=== PATIENT | female | born 1940 | race Two or more races ===

== ENCOUNTER 2023-01-18 10:45 | Inpatient (IN) | payer OTHER ==
[~2023-01-18] VITALS: Ht 154.9 cm; Wt 73.9 kg
[2023-01-18] MEDS ORDERED: METFORMIN HCL1000 M1 PO (13:04)
[2023-01-18] MEDS ORDERED: ENALAPRIL MALEAT5 MG PO (13:05)
[2023-01-18] MEDS ORDERED: ATORVASTATIN CA40 MG PO (13:05)
== END 2023-01-26 11:54 | disposition home or self-care (01) | DRG 743 ==
LOC: ADM 10:45 → SURH 01-24 07:00 → O/R 01-24 07:24 → OB/GYN 01-24 07:24 → SURH 01-24 10:45 → CIR.AMB 01-24 10:45 → EDSTATUS 01-24 10:45 → OB/GYN 01-24 19:09
PROVIDERS: ADMIT Obstetrics & Gynecology; ATTEND Obstetrics & Gynecology
PROC: 0UBGXZZ Excision of Vagina, External Approach (ICD-10-PCS; 2023-01-24)
PROC: 0JQC0ZZ Repair Pelvic Region Subcutaneous Tissue and Fascia, Open Approach (ICD-10-PCS; 2023-01-24)
PROC: 0WQNXZZ Repair Female Perineum, External Approach (ICD-10-PCS; 2023-01-24)
PROC: 0UT97ZZ Resection of Uterus, Via Natural or Artificial Opening (ICD-10-PCS; principal; 2023-01-24 07:00)
DX: D25.1 Intramural leiomyoma of uterus (principal); D25.2 Subserosal leiomyoma of uterus; N72 Inflammatory disease of cervix uteri; Z20.822 Contact with and (suspected) exposure to COVID-19

== ENCOUNTER 2023-01-18 14:03 | Outpatient (CLI) | payer OTHER ==
[~2023-01-18 14:03] MED LIST: ATORVASTATIN CA40 MG PO; ENALAPRIL MALEAT5 MG PO; METFORMIN HCL1000 M1 PO
== END 2023-01-18 14:09 | disposition home or self-care (01) ==
LOC: SONOGRAMA 14:03
PROVIDERS: ATTEND Obstetrics & Gynecology
DX: N39.0 Urinary tract infection, site not specified (principal)